=== PATIENT | male | born 1960 | race Caucasian/White ===

== ENCOUNTER → 2016-08-27 15:00 | Outpatient (CLI) | payer BC ==
[2015-10-19 14:02] VITALS: BMI 33.5
[~2016-08-27 15:00] MED LIST: ACETAMINOPHEN500 M1 PO; DILAUDID2 MG PO; IBUPROFEN600 MG PO; PERCOCET 10/3251 TA1 PO; PRILOSEC20 MG PO; ZESTORETIC 20-1 EACH PO; ZYLOPRIM100 MG PO
== END ==
LOC: D.MRI 08-25 13:00
DX: S83.231A Complex tear of medial meniscus, current injury, right knee, initial encounter (principal)

== ENCOUNTER 2016-10-17 12:10 | Day surgery (SDC) | payer BC ==
[~2016-10-17] VITALS: Ht 172.7 cm; Wt 107.0 kg
[~2016-10-17 12:10] MED LIST changes: -PERCOCET 10/3251 TA1 PO
[2016-10-17 13:23] LABS: HEMATOCRIT 41.5 % (42.0-54.0); HEMOGLOBIN 13.8 g/dL (13.5-17.5); MCH 29.9 pg (26.0-34.0); MCHC 33.3 g/dL (31.0-37.0); RBC 4.61 10x6/uL (4.20-6.10); RDW 14.1 % (11.5-14.5); WBC 8.6 10x3/uL (4.8-10.8)
[2016-10-17 13:25] VITALS: BP 113/70; Ht 172.7 cm; Wt 107.0 kg
[2016-10-17 13:28] LABS: ANION GAP 17.4 mmol/L (8-16); CALCIUM 8.7 mg/dL (8.5-10.1); CARBON DIOXIDE 23.1 mmol/L (21.0-32.0); CREATININE - SERUM 1.3 mg/dL (0.6-1.3); POTASSIUM - SERUM 4.5 mmol/L (3.5-5.1)
[2016-10-17] MEDS ORDERED: PERCOCET 10/3251 TA1 PO (14:52)
--- NOTE | 2016-10-20 13:17 | OP ---
PATIENT NAME: ROCIO WONG MEDICAL RECORD: [id number] :64 LOCATION:D.OPS ADMISSION DATE: SURGEON: RACH ESPINAL, DEVON FRANKS DATE OF OPERATION: 10/17/2016 PREOPERATIVE DIAGNOSES: Medial meniscus tear of the right knee, bursitis of the right hip. POSTOPERATIVE DIAGNOSES: Medial meniscus tear plus grade III chondromalacia of the medial femoral condyle, bursitis of the right hip. PROCEDURES: 1. Right knee arthroscopy with arthroscopic partial medial meniscectomy. 2. Abrasion chondroplasty medial femoral condyle. 3. Autologous concentrated plasma injection to the right knee. 4. Right hip injection. SURGEON: Devon Loyd MD. ANESTHESIA: General. INTRAOPERATIVE COMPLICATIONS: None. SUMMARY OF PATHOLOGIC FINDINGS: The patient had further tearing of the medial meniscus. At this time, he had a posterior bucket-handle tear. The lateral meniscus was intact. The medial meniscus had bucketed substantially resulting in subtotal medial meniscectomy. The patient further had chondromalacia as described above. OPERATIVE SUMMARY IN DETAIL: After obtaining the appropriate preoperative orthopedic surgery consent as well as anesthetic consultation, evaluation and clearance, the patient was brought to the operating room and placed on the operating table in supine position. After general laryngeal mask was administered, tourniquet was placed about the proximal aspect of the right lower extremity. Right lower extremity was then prepped and draped in a routine sterile fashion. The leg was elevated and exsanguinated, tourniquet inflated to 350 mmHg. Routine inferolateral portal was established followed by a superomedial portal and inferomedial portal. Diagnostic arthroscopy revealed the above findings. Attention was first turned to the medial meniscus. Multiple intraoperative photos were taken. The meniscus was debrided the entire bucket back to stable meniscal elements. Then, gentle chondroplasty was performed to relieve the articular surface of any loose flaps. Having completed this, the area of the worse chondromalacia was treated with abrasion chondroplasty using the chondral pick from [employer]. Lastly, after arthroscopy portals were closed, the knee was insufflated with approximately 8 cc of autologous concentrated plasma. Having completed this, the sterile dressings were applied. The tourniquet was deflated and then the right hip was prepped and draped in a routine sterile fashion. An 18-gauge needle was then introduced into the patient's trochanteric bursa on the right side. The bursa was then injected with 10 cc of 0.25% Marcaine with epinephrine and 80 mg of Depo-Medrol. Having completed this, the patient was awakened, LMA was removed. He was taken to recovery room in stable condition. All final needle and sponge counts were correct. TRANSINT:[id number] Voice Confirmation ID: [id number] DOCUMENT ID: [id number] OPERATIVE REPORT [id number] ROCIO WONG MD, DEVON FRANKS at 1317 CC: [id number] DICTATION DATE: 10/17/16 1448 [employer] CLERK: 10/17/16 2247 [facility] 10/17/16 [address] [place] [address]
== END 2016-10-17 17:00 | disposition home or self-care (01) ==
LOC: D.OPS 12:10
PROVIDERS: Anesthesiology
DX: S83.241A Other tear of medial meniscus, current injury, right knee, initial encounter (principal); X58.XXXA Exposure to other specified factors, initial encounter; M70.71 Other bursitis of hip, right hip; M94.261 Chondromalacia, right knee; I10 Essential (primary) hypertension
CPT/HCPCS: 29879; 29881; 0232T

== ENCOUNTER → 2017-10-19 14:29 | Day surgery (SDC) | payer BC ==
[~2017-10-19] VITALS: Ht 172.7 cm; Wt 99.8 kg
--- NOTE | ~2017-10-19 | OP ---
PATIENT NAME: ROCIO WONG MEDICAL RECORD: [id number] :64 LOCATION:D.OPS ADMISSION DATE: SURGEON: DEVON LOYD MD DATE OF OPERATION: 10/19/2017 PREOPERATIVE DIAGNOSIS: Right lateral malleolus fracture. POSTOPERATIVE DIAGNOSIS: Right lateral malleolus fracture. PROCEDURE: Open reduction internal fixation of right lateral malleolus fracture. SURGEON: Devon Loyd MD ANESTHESIA: General. INTRAOPERATIVE COMPLICATIONS: None. SUMMARY OF PATHOLOGIC FINDINGS: The patient had a displaced lateral malleolar fracture that reduced back to an anatomic position and was plated. OPERATIVE SUMMARY IN DETAIL: After obtaining the appropriate preoperative orthopedic surgery consent as well as anesthetic consultation, evaluation and clearance, the patient was brought to the operating room and placed on the operating table in supine position. After general laryngeal mask airway was administered, tourniquet was placed about the proximal aspect of the right lower extremity. Right lower extremity was then prepped and draped in routine sterile fashion. Leg was elevated, exsanguinated, and tourniquet inflated to 350 mmHg. An incision was made down to the tip of the distal fibula and proximal to the fracture itself. Dissection was carried down to the fracture itself. It was gently opened and all interposed fracture hematoma was removed. It was then reduced with a lobster claw bone tenaculums and held in place. The plate was then affixed, [employer] 8-hole plate, with a combination of 3.5 locking screws, compression screws as well as 2.7 locking screws. Final radiographs were taken and submitted for radiologist review. The wound was copiously irrigated and closed in the usual fashion. Sterile dressings were applied. An L&U splint was applied. The patient was awakened, taken to recovery room in stable condition. All final needle and sponge counts were correct. TRANSINT:[id number] Voice Confirmation ID: [id number] DOCUMENT ID: [id number] RACH ESPINAL, DEVON FRANKS at 1842 CC: [id number] DICTATION DATE: 10/19/171937 [employer] T[employer] OPERATOR: 10/20/17 0205 [facility] 10/19/17 [id number] [place] [address]
[~2017-10-19 14:29] MED LIST changes: +BAYER CHEWABLE81 MG PO; +ELIQUIS2.5 MG PO; +PERCOCET 10/3251 TA1 PO; +TORADOL10 MG PO
[2017-10-19 14:35] VITALS: BP 117/68; Ht 172.7 cm; Wt 99.8 kg
[2017-10-19 14:38] LABS: BASOPHILS 0.6 % (0-2); EOSINOPHILS 2.2 % (0-7); HEMATOCRIT 42.4 % (42.0-54.0); HEMOGLOBIN 13.9 g/dL (13.5-17.5); IMMATURE GRANULOCYTES 0.3 % (0-5); LYMPHOCYTES 20.3 % (15-50); MCH 29.5 pg (26.0-34.0); MCHC 32.8 g/dL (31.0-37.0); MEAN PLATELET VOLUME 12.2 fL (7.4-10.4); MONOCYTES 10.8 % (2-11); NEUTROPHILS 65.8 % (40-80); PLATELET COUNT 161 10x3/uL (130-400); RBC 4.71 10x6/uL (4.20-6.10); RDW 14.1 % (11.5-14.5); WBC 10.2 10x3/uL (4.8-10.8)
[2017-10-19 15:07] LABS: CALCIUM 8.8 mg/dL (8.5-10.1); CARBON DIOXIDE 25.5 mmol/L (21.0-32.0); CREATININE - SERUM 1.4 mg/dL (0.6-1.3); POTASSIUM - SERUM 4.5 mmol/L (3.5-5.1)
[2017-10-19 19:43] VITALS: BP 120/49
== END | disposition home or self-care (01) ==
LOC: D.OPS 14:29 → D.MS 19:14 → D.OPS 20:57 → D.MS 20:57
PROVIDERS: Anesthesiology
DX: S82.61XA Displaced fracture of lateral malleolus of right fibula, initial encounter for closed fracture (principal); I10 Essential (primary) hypertension; Z01.812 Encounter for preprocedural laboratory examination